=== PATIENT | female | born 1975 | race Caucasian/White ===

== ENCOUNTER 2016-11-07 18:05 | Emergency (ER) | payer OTHER ==
--- NOTE | 2016-11-07 19:58 | PROVIDER DOCUMENTATION ---
HPI-Female /OB/Breast - General Chief Complaint: Breast Pain Stated Complaint: RT SIDE/BREAST PAIN Time Seen by Provider: 11/07/16 19:46 Source: reports: patient Allergies/Adverse Reactions: Patient Allergies Allergy/AdvReac Type Severity Reaction Status Date / Time nickel [Nickel] Allergy Severe RASH Verified 10/23/12 11:44 titanium Allergy Severe ITCHING Verified 05/28/13 10:23 adhesive Allergy Intermediate RASH Verified 11/01/12 13:31 gabapentin [From Neurontin] Allergy RASH Verified 06/11/15 16:35 pregabalin [From Lyrica] AdvReac FATIGUE Verified 06/11/15 16:35 Home Medications: Home Medication List Medication Instructions Recorded Confirmed Last Taken Type Omeprazole [Prilosec] 1 cap PO DAILY 08/23/12 06/11/15 06/11/15 14:00 History Ferrous Sulfate [Iron] 1 tab PO DAILY 10/23/12 06/11/15 06/11/15 14:00 History Montelukast [Singulair] 1 tab PO DAILY 10/23/12 06/11/15 06/11/15 14:00 History Cetirizine HCl 1 tab PO DAILY 05/28/13 06/11/15 06/11/15 14:00 History Clindamycin [Cleocin] 150 mg PO Q6HR #30 capsule 06/11/15 Unknown Rx Estrogen Vag Cream [Premarin Vag 42.5 gm .SEE ORDER DAILY 06/11/15 06/11/15 1 Day Ago History Cream] Sulfamethoxazole/Trimethoprim 1 each PO BID #10 tablet 06/11/15 Unknown Rx [Bactrim Ds Tablet] Diclofenac Na D.r. [Voltaren] 50 mg PO BID #30 tab 11/07/16 Unknown Rx - History of Present Illness-Female /OB Nature of Presenting Problem: This pt presents today c complaints of a "painful knot" on the R breast that she noticed a few days ago. She denies any erythema. No hx of breath mass or lumps. No family hx of breast cancer. No other issues or complaints. Location of complaint: reports: other (see hpi) Quality of Pain: reports: aching Severity in ED: reports: moderate Onset/Duration: reports: 4 days ago Timing: reports: still present Context/Activities at Onset: reports: none Vaginal Symptoms: reports: no symptoms Urinary Symptoms: reports: no symptoms Related Symptoms: reports: no symptoms Leakage of Fluid: none Associated Symptoms: reports: chest pain (R breast) Similar Symptoms Previously?: No Recently seen or treated by another doctor?: No Review of Systems - Adult - REVIEW OF SYSTEMS - ADULT Constitutional: reports: no symptoms reported. denies: chills, fatique Eyes: reports: no symptoms reported. denies: discharge, dry eyes Ears, Nose, Mouth & Throat: reports: no symptoms reported. denies: ear discharge, ear pain Cardiovascular: reports: no symptoms reported. denies: chest pain, edema Respiratory: reports: no symptoms reported. denies: chronic cough, cough Gastrointestinal: reports: no symptoms reported. denies: abdominal pain, hematemesis Genitourinary: reports: no symptoms reported. denies: dysuria, discharge Musculoskeletal: reports: see HPI Integumentary: reports: see HPI. denies: hives, hair loss Neurological: reports: no symptoms reported Psychiatric: reports: no symptoms reported. denies: anxiety, anti-depressant use Endocrine: reports: no symptoms reported Hematologic/Lymphatic: reports: no symptoms reported Allergic/Immunologic: reports: no symptoms reported All Other Systems: Reviewed and Negative Past History - Adult - PAST MEDICAL HISTORY-ADULT Review of Records: reports: Old Records Reviewed, Nursing Assessment Review, Medications Reviewed, Social history reviewed & non-contributory. Major Childhood Illnesses: reports: denies history Cardiovascular: reports: denies history Respiratory: reports: denies history Gastrointestinal: reports: IBS Obstetrical/Gynecological: reports: denies history Genitourinary: reports: denies history Musculoskeletal: reports: denies history Neurological: reports: denies history Endocrine/Immune: reports: denies history Other Conditions: reports: denies history Physical Exam-General - PHYSICAL EXAM-ADULT Initial Vital Signs Reviewed: Yes - CONSTITUTIONAL General Appearance: appears well, alert, no apparent distress - EYES Eyes: PERRL/EOMI, pink conjunctivae - HEAD, EARS, NOSE, MOUTH & THROAT HENMT: normocephalic/atraumatic, moist mucous membranes, normal ENT inspection - NECK Neck: non-tender, full range of motion, supple, normal inspection - RESPIRATORY Respiratory: chest non-tender, lungs clear, normal breath sounds, no pleuratic chest pain, no respiratory distress, no accessory muscle use. negative: respiratory distress, decreased breath sounds, accessory muscle use - CARDIOVASCULAR Cardiovascular: normal peripheral pulses, regular rate, rhythm - CHEST (BREASTS) Chest/Breast: tenderness, mass/lump noted (feels like fibrocystic dz in several areas) - GASTROINTESTINAL (ABDOMEN) Abdominal Exam: normal bowel sounds, non tender, soft - MUSCULOSKELETAL Back Exam: normal inspection, no CVA tenderness, no vertebral tenderness Extremity: normal range of motion, non-tender, normal gait, normal inspection - SKIN Integumentary: normal color, normal turgor, warm/dry - NEUROLOGIC Neurologic: grossly normal, no motor/sensory deficits Progress - PLAN OF CARE/RESULTS Progress/Plan/Lab Results: Vital Signs Temp Pulse Resp BP Pulse Ox 11/07/16 18:10 98.2 F 96 H 18 128/81 97 nickel [Nickel] Allergy (Severe, Verified 10/23/12 11:44) RASH titanium Allergy (Severe, Verified 05/28/13 10:23) ITCHING adhesive Allergy (Intermediate, Verified 11/01/12 13:31) RASH silk tape=rash gabapentin [From Neurontin] Allergy (Verified 06/11/15 16:35) RASH pregabalin [From Lyrica] Adverse Reaction (Verified 06/11/15 16:35) FATIGUE Omeprazole [Prilosec] 1 cap PO DAILY 08/23/12 Ferrous Sulfate [Iron] 1 tab PO DAILY 10/23/12 Montelukast [Singulair] 1 tab PO DAILY 10/23/12 Cetirizine HCl 1 tab PO DAILY 05/28/13 Clindamycin [Cleocin] 150 mg PO Q6HR #30 capsule 06/11/15 Estrogen Vag Cream [Premarin Vag Cream] 42.5 gm .SEE ORDER DAILY 06/11/15 Sulfamethoxazole/Trimethoprim [Bactrim Ds Tablet] 1 each PO BID #10 tablet 06/11 I had a long discussion c the pt that although this may be fibrocystic breast disease it is extremely important that she be set up for a mammogram and possible ultrasound. She and her family assured me that they would speak c her primary care physician in the morning. Departure - Departure Time of Disposition Order: 19:57 DIAGNOSIS: Breast lump in lower-outer quadrant Disposition: HOME 01 Certified Medical Emergency: Urgent Condition: Good Additional Instructions: Take medication as prescribed. As we discussed, call your Doctor in the morning. ED Follow Up Instructions: You have been treated by a care provider in the Emergency Department. These instructions are being provided to you so you can have an understanding of how to care for yourself upon discharge. Upon discharge from the Emergency Department, you are responsible for making arrangements for follow-up care by a physician of your choice. Take all prescribed medications as directed. Return to the Emergency Department immediately for any new or worsening symptoms. You may call the Physician Referral phone number at [phone] to obtain a list of Physicians who are taking new patients. Prescriptions: Diclofenac Na D.r. [Voltaren] 50 mg PO BID #30 tab Referrals: Yoni Vidales MD [Primary Care Provider] - Attestation - Physician/ KAT Attestation Patient care was provided by Advanced Practice Provider:: Yes Advanced Practice Provider:: Nikko Hdez Advanced Practice Provider documentation review:: The Mid-level provider documentation, treatment plan and medical decision making was reviewed by the physician who agrees with all treatment and medical decision making by the MLP.
[2016-11-07 20:15] VITALS: BP 111/69
== END 2016-11-07 20:20 | disposition home or self-care (01) ==
LOC: ED 18:05
DX: N63 Unspecified lump in breast (principal); Z79.899 Other long term (current) drug therapy; Z79.51 Long term (current) use of inhaled steroids